=== PATIENT | female | born 1955 | race Caucasian/White ===

== ENCOUNTER 2019-05-06 15:56 | Emergency (ER) | payer OTHER ==
[~2019-05-06] VITALS: Ht 157.5 cm; Wt 93.0 kg
[2019-05-06 16:12] VITALS: BP_SYST 127
--- NOTE | 2019-05-06 16:15 | NUR ---
Patient triaged and placed in waiting room. VSS and patient appears in no acute distress at this time. Accompanied by FRIEND, awaiting available bed, and MD notified of need for MSE.
--- NOTE | 2019-05-06 19:20 | NUR ---
PLACED IN BED 4. HERE FOR FLU-LIKE SYMPTOMS X 2 DAYS. SEEN PMD AND WAS DIAGNOSED TO HAVE ACUTE BRONCHITIS AND WAS PRESCRIBED AN INHALER AND COUGH MEDICATION.
--- NOTE | 2019-05-06 19:51 | NUR ---
ER-MD CAME BY BEDSIDE TO EVALUATE PT.
--- NOTE | 2019-05-06 20:02 | NUR ---
WENT FOR CXR VIA WHEELCHAIR.
--- NOTE | 2019-05-06 20:05 | NUR ---
BACK FROM RADIOLOGY DEPARTMENT. INFLUENZA A AND B SWAB COLLECTED AND SENT TO THE LAB.
--- NOTE | 2019-05-06 20:37 | NUR ---
Positive Influenza A. Dr. Aranda made aware.
[2019-05-06] MEDS ORDERED: NACL 0.9% 1,000 ML IV ONE (21:14)
[2019-05-06] MEDS ORDERED: ONDANSETRON HCL 4 MG/2 ML VIAL IVP ONE (21:15)
--- NOTE | 2019-05-06 21:48 | NUR ---
GAUGE 18 IV LINE ESTABLISHED TO THE LEFT HAND. NS 1 LITER BOLUS AND ZOFRAN 4 MG IVP GIVEN ORDERED.
--- NOTE | 2019-05-06 21:55 | NUR ---
COMPLAINED OF THROBBING HEADACHE (9/10). ER-MD MADE AWARE.
[2019-05-06] MEDS ORDERED: ACETAMINOPHEN 325 MG TABLET PO ONE (22:00)
--- NOTE | 2019-05-06 22:09 | NUR ---
TYLENOL 650 MG PO GIVEN ORDERED.
--- NOTE | 2019-05-06 22:37 | NUR ---
DISCHARGED STABLE AND IMPROVED. VERBAL AND WRITTEN AFTERCARE INSTRUCTIONS GIVEN. VERBALIZED UNDERSTANDING. LEFT AMBULATORY WITH STABLE GAIT.
[2019-05-06 22:41] VITALS: BP_SYST 123
== END 2019-05-06 22:41 | disposition home or self-care (01) ==
LOC: SED 15:56
DX: J10.1 Influenza due to other identified influenza virus with other respiratory manifestations (principal); E78.5 Hyperlipidemia, unspecified; E11.9 Type 2 diabetes mellitus without complications
CPT/HCPCS: 36415; 71046; 86710; 96374; 99283; J2405; J7030